=== PATIENT | male | born 2000 | race African-American/Black ===

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

== ENCOUNTER 2019-09-21 12:47 | Day surgery (SDC) | payer OTHER ==
[~2019-09-21 12:47] MED LIST: Buffered Lidocaine 1% SYRIN* 1 ML/SYRINGE INTRADERM ONE; Bupivacaine 0.5%* 50 ML MDV VIAL ONE; EPINEPHRINE 1 MG/ML 1 ML VIAL ONE; Lactated Ringers 1000 ML Bag* 1,000 ML IV SCH
[2019-09-21] MEDS ORDERED: ceFAZolin 2 GM PREMIX in ORs 2 GM/50 ML BAG ONE (13:09)
[2019-09-21] MEDS ORDERED: Ondansetron INJ* 2 MG/ML VIAL ONE (14:33)
[2019-09-21] MEDS ORDERED: Dexamethasone IV* 4 MG/ML 1 ML (4 MG) ONE (14:33)
[2019-09-21] MEDS ORDERED: Ketorolac INJ* 30 MG/ML 1 ML VIAL ONE (14:33)
[2019-09-21] MEDS ORDERED: Lidocaine 2% PF * 5 ML VIAL ONE (14:33)
[2019-09-21] MEDS ORDERED: Propofol* 10 MG/ML 20 ML BTL ONE (14:33)
[2019-09-21] MEDS ORDERED: Midazolam* 1 MG/ML 5 ML VIAL (5 MG) ONE (14:34)
[2019-09-21] MEDS ORDERED: fentaNYL* 50 MCG/ML 2 ML VIAL (100 MCG VIAL) ONE (14:34)
[2019-09-21] MEDS ORDERED: Ondansetron INJ* 2 MG/ML VIAL IV PRN (15:28)
[2019-09-21] MEDS ORDERED: oxyCODONE/Acetamin 5/325 MG* TAB PO PRN (15:28)
[2019-09-21] MEDS ORDERED: HYDROmorphone INJ1* 1 MG/ML SYRINGE IV PRN (15:28)
[2019-09-21] MEDS ORDERED: fentaNYL* 50 MCG/ML 2 ML VIAL (100 MCG VIAL) IV PRN (15:28)
[2019-09-21] MEDS ORDERED: Naloxone* 0.4 MG/ML 1 ML VIAL IV PRN (15:28)
[2019-09-21 18:26] VITALS: BP 144/83
--- NOTE | 2019-09-21 23:43 | OP ---
DATE OF OPERATION: 09/21/19 - [facility] DATE OF : 99 SURGEON: Kevin Kirk MD. MEDICAL STAFFING COORDINATOR: MALLORY Shultz. A physician legal support assistant was required for the length of the procedure for assistance with patient positioning, knee manipulation, instrumentation, retraction, and closure. ANESTHESIOLOGIST: Dr. Kirk Deluna. ANESTHESIA: General anesthesia, local anesthesia using 30 cc of Marcaine 0.5% without epinephrine. PRE-OP DIAGNOSES: 1. Left knee lateral meniscus tear with displaced flap fragment. 2. 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 POST-OP DIAGNOSES: 1. Left knee lateral meniscus tear with displaced flap fragment. 2. 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 OPERATIVE PROCEDURE: Left knee arthroscopic partial lateral meniscectomy. ANTIBIOTICS: Ancef 2 g IV. IV FLUIDS: See Anesthesia note. [id number]-MV-[id number] TIME: 22 minutes. TOURNIQUET TIME: 26 minutes at 300 mmHg of tourniquet, left thigh. SPECIMEN: None. IMPLANTS: None. ESTIMATED BLOOD LOSS: Minimal. COMPLICATIONS: None. INDICATIONS FOR PROCEDURE: The patient is a 19-year-old man, [place] student, who injured himself for the first time of that left knee in approximately November or October 2018. The patient injured himself while weightlifting. There was significant amount of knee swelling. No diagnosis or treatment at that time. He did not seek medical care. The patient then reinjured his knee in the summer of 2018 while playing soccer in [place]. The patient was seen at [facility] in the fall, but then injured his left knee again while weightlifting in July 2019. The patient had an exam consistent with a lateral meniscus tear. This was consistent with his history as well. MRI showed a clear displaced flap fragment inferior to the posterior horn of the lateral meniscus. Given the excellent amount of intact lateral meniscus elsewhere, I suspected that this could be some discoid or discoid variant meniscus that had torn and displaced inferior to the posterior horn. Whether the meniscus had been discoid originally or not did not currently affect my plan. This patient had a painful meniscus tear that had continued to be painful and symptomatic. I discussed with the patient possible treatment options including surgery. I discussed risks and potential complications of surgery. I spoke with the patient's father over the telephone and reiterated all the same points, with the patient's permission and with the patient in the room. DESCRIPTION OF PROCEDURE: In the preoperative holding, the patient signed a written consent. Operative extremity was marked in preoperative holding. The patient was taken back to the operating room and placed supine on the operating room table. Sedated and intubated. A bump was placed under the left hemipelvis. A tourniquet was placed about the left proximal thigh. The left distal thigh was placed in the circumferential thigh alcocer. The left lower extremity was prepped and draped. Surgical time- out performed. Esmarch was applied and tourniquet was elevated. I made an anterolateral knee arthroscopy portal using standard technique. No patellofemoral compartment or articular cartilage injury. There was some anterior synovitis. I dropped the scope down to the rest of the joint. Intercondylar notch showed no ACL injury nor any PCL injury. Medial compartment showed no articular cartilage nor medial meniscus injury. Evaluation of the lateral compartment showed some grade 1 diffuse injury of the tibial articular cartilage. This was unimpressive. There was a clear displaced flap fragment about the inferior aspect of the posterior horn as predicted. This fragment was smaller than I would have predicted based on MRI scan. I made an anteromedial knee arthroscopy portal under direct visualization. I debrided some anterior synovitis with an arthroscopic shaver. I debrided the meniscal tear about the posterior horn of the lateral meniscus back to a stable rim using arthroscopic vinay and meniscal biters. I probed the remainder of the meniscus and everything was stable. I performed my work through both anteromedial and anterolateral portals. I consented the patient both for partial lateral meniscectomy or lateral meniscal repair. There was no repairable meniscal tear. So, I just performed a partial lateral meniscectomy. I returned to the medial compartment. I probed the medial meniscus and there was no tear. I removed all the instruments and fluid from the knee. I closed the skin incisions with [id number] in 12 stitches using nylon 3.0 suture. Local anesthesia injected. Xeroform, 4x4s, ABDs, sterile Webril, Sami bandage. Cooling unit. The patient was awakened, extubated, and transferred to the PACU. DISPOSITION: The patient will start physical therapy immediately. Wound care instructions provided. Tramadol as needed for pain control. Aspirin b.i.d. x2 weeks for DVT prophylaxis. The patient will follow up with me in clinic in 10 to 14 days. [id number]/[facility] #: [id number] [facility]
== END 2019-09-21 18:26 | disposition home or self-care (01) ==
LOC: OR 12:47
PROVIDERS: ATTEND Orthopaedic Surgery
DX: S83.272A Complex tear of lateral meniscus, current injury, left knee, initial encounter (principal); X50.0XXA Overexertion from strenuous movement or load, initial encounter; Y93.B3 Activity, free weights; Y92.9 Unspecified place or not applicable; J45.909 Unspecified asthma, uncomplicated
CPT/HCPCS: J0690; J1100; J1885; J2250; J2405; J2704; J3010; J3490